=== PATIENT | male | born 1990 | race African-American/Black ===

== ENCOUNTER 2018-06-26 21:28 | Emergency (ER) | payer SELFPAY ==
[2018-06-27] MEDS ORDERED: MAG HYDROX/AL HYDROX/SIMETH SUSP 30 ML UDCUP PO ONE (00:42)
[2018-06-27] MEDS ORDERED: LIDOCAINE 2% VISCOUS SOLN 20 ML UDCUP PO ONE (00:42)
[2018-06-27] MEDS ORDERED: PANTOPRAZOLE SODIUM 40 MG VIAL IV ONE (00:42)
[2018-06-27] MEDS ORDERED: METOCLOPRAMIDE HCL ORAL SOLN 10 MG/10 ML UDCUP PO ONE (00:42)
[2018-06-27] MEDS ORDERED: NORMAL SALINE 1000 ML 1,000 ML IV ONE (00:42)
--- NOTE | 2018-06-27 00:43 | ER Document Report ---
ED General - General Chief Complaint: Abdominal Pain Stated Complaint: STOMACH PAIN Time Seen by Provider: 06/27/18 00:09 Notes: Patient is a 28-year-old male that presents to the emergency department for chief complaint of epigastric abdominal pain. Patient reports he has been having symptoms for about 2 weeks. He describes as a sharp pain, epigastric region, that seems to sometimes be better with food. He is been taking Pepto- Bismol with some relief, but the pain came back to be decided come to the emergency department. He has had off and on nausea and occasionally vomiting. He states his stools were darker when he was taking the Pepto-Bismol, but were normal today. He has been having harder stools. He denies noting any blood in the vomit or in the stools. No prior history of peptic ulcer disease. Denies noting any recent fevers, chills, night sweats, chest pain, shortness of breath , dysuria or hematuria. Past Medical History: Denies chronic medical conditions Past Surgical History: Denies surgical history Social History: Admits to smoking cigarettes, but denies alcohol or drug use. Family History: Reviewed and noncontributory for presenting illness Allergies: Reviewed, see documented allergy list. REVIEW OF SYSTEMS: Unless otherwise stated in this report the patient's positive and negative responses for review of systems for constitutional, eyes, ENT, cardiovascular, respiratory, gastrointestinal, neurological, genitourinary, musculoskeletal, and integumentary systems and related systems to the presenting problem are either as stated in the HPI or were not pertinent or were negative for the symptoms and/or complaints related to the presenting medical problem. PHYSICAL EXAMINATION: Vital signs reviewed, nursing noted reviewed. GENERAL: Well-appearing, well-nourished and in no acute distress. HEAD: Atraumatic, normocephalic. EYES: Eyes appear normal, extraocular movements intact, sclera anicteric, conjunctiva are normal. ENT: nares patent, oropharynx clear without exudates. Moist mucous membranes. NECK: Normal range of motion, supple without lymphadenopathy LUNGS: Breath sounds clear to auscultation bilaterally and equal. No wheezes rales or rhonchi. HEART: Regular rate and rhythm without murmurs ABDOMEN: Soft, mild epigastric abdominal pain with palpation, normoactive bowel sounds. No rebound, guarding, or rigidity. No masses appreciated. EXTREMITIES: Nontender, good range of motion, no pitting or edema. NEUROLOGICAL: No focal neurological deficits. Moves all extremities spontaneously Motor and sensory grossly intact on exam. PSYCH: Normal mood, normal affect. SKIN: Warm, Dry, normal turgor, no rashes or lesions noted on exposed skin TRAVEL OUTSIDE OF THE [place] IN LAST 30 DAYS: No Past Medical History - Social History Smoking Status: Current Every Day Smoker Family History: Reviewed & Not Pertinent Physical Exam - Vital signs Vitals: Temp Pulse Resp BP Pulse Ox 98.3 F 126 H 18 129/76 H 99 06/26/18 22:18 06/26/18 22:18 06/26/18 22:18 06/26/18 22:18 06/26/18 22:18 Course - Re-evaluation Re-evalutation: Patient seen and examined vital signs reviewed. Laboratory data and imaging were ordered as appropriate for the patient's presenting symptoms and complaint, with consideration of any critical or life threatening conditions that may be associated with their obtained history and exam as noted above. Patient was treated with IV fluids, GI cocktail, and IV Protonix Results were reviewed when available and demonstrated unremarkable blood work The patient was re-evaluated and was much improved, denied having any pain, and he was overall feeling much better Evaluation was most consistent with epigastric abdominal pain, possible gastritis versus peptic ulcer disease, will discharge the patient home on omeprazole 40 mg daily, and Carafate 3 times daily Results were discussed with the patient at this point, after careful consideration I feel that that patient can be discharged from the emergency department, the patient was educated treatments and reasons to return to the emergency department based on their presumed diagnosis as noted above, they were advised to followup with a primary care physician in 2-3 days. Patient was agreeable to plan of care. *Note is created using voice recognition software and may contain spelling, syntax or grammatical errors. - Vital Signs Vital signs: Temp Pulse Resp BP Pulse Ox 98.3 F 126 H 18 131/93 H 100 06/26/18 22:18 06/26/18 22:18 06/26/18 22:18 06/27/18 02:01 06/27/18 02:01 - Laboratory Result Diagrams: 06/27/18 00:35 06/27/18 00:35 Discharge - Discharge Clinical Impression: Epigastric pain Condition: Stable Disposition: HOME, SELF-CARE Instructions: Abdominal Pain ([facility]) Additional Instructions: Please take medications as prescribed, and follow-up with gastroenterology, if you have any further concerns, do not hesitate to return to the emergency department. Prescriptions: Omeprazole 40 mg PO DAILY #30 capsule. Sucralfate [Carafate 1 gm Tablet] 1 gm PO ACHS #120 tablet Referrals: KATIUSKA VILLAREAL MD [ACTIVE STAFF] - Follow up in 3-5 days (gastroenterology)
[2018-06-27 00:52] LABS: ABSOLUTE LYMPHOCYTES (AUTO) 2.3 10^3/uL (0.5-4.7); ABSOLUTE MONOCYTES (AUTO) 0.8 10^3/uL (0.1-1.4); ABSOLUTE NEUT (AUTO) 5.6 10^3/uL (1.7-8.2); BASOPHILS % (AUTO) 0.3 % (0-2); EOSINOPHILS % (AUTO) 0.4 % (0-6); HEMATOCRIT 45.2 % (37.9-51.0); HEMOGLOBIN 15.1 g/dL (13.5-17.0); MEAN CORPUSCULAR HEMOGLOBIN 28.8 pg (27.0-33.4); MEAN CORPUSCULAR HGB CONC 33.4 g/dL (32.0-36.0); MEAN CORPUSCULAR VOLUME 86 fl (80-97); MONOCYTES % (AUTO) 9.2 % (3-13); PLATELET COUNT 217 10^3/uL (150-450); RED BLOOD COUNT 5.23 10^6/uL (4.35-5.55); RED CELL DISTRIBUTION WIDTH 13.3 % (11.5-14.0); SEGMENTED NEUTROPHILS % (AUTO) 64.1 % (42-78); TOTAL CELLS COUNTED % (AUTO) 100 %; WHITE BLOOD COUNT 8.7 10^3/uL (4.0-10.5)
[2018-06-27 01:53] LABS: ALANINE AMINOTRANSFERASE 22 U/L (21-72); ALBUMIN 4.6 g/dL (3.5-5.0); ALKALINE PHOSPHATASE 56 U/L (38-126); ANION GAP 12 (5-19); ASPARTATE AMINO TRANSFERASE 17 U/L (17-59); BILIRUBIN,DIRECT 0.3 mg/dL (0.0-0.4); BILIRUBIN,TOTAL 0.7 mg/dL (0.2-1.3); BLOOD UREA NITROGEN 13 mg/dL (7-20); CALCIUM 10.1 mg/dL (8.4-10.2); CARBON DIOXIDE 25 mmol/L (22-30); CHLORIDE 103 mmol/L (98-107); GLUCOSE 97 mg/dL (75-110); LIPASE 79.3 U/L (23-300); POTASSIUM 3.8 mmol/L (3.6-5.0); SODIUM 139.6 mmol/L (137-145); TOTAL PROTEIN 7.6 g/dL (6.3-8.2)
[2018-06-27 02:37] VITALS: BP 131/93
== END 2018-06-27 02:46 | disposition home or self-care (01) ==
LOC: ER 21:28
DX: R10.13 Epigastric pain (principal); F17.210 Nicotine dependence, cigarettes, uncomplicated
CPT/HCPCS: 99284; 36415; 83690; 85025; 80053; J3490; S0164

== ENCOUNTER 2018-07-08 23:12 | Emergency (ER) | payer SELFPAY ==
--- NOTE | 2018-07-09 00:23 | RADIOLOGY REPORT (SQ) ---
CLINICAL DATA: 28-year-old male with lower central abdominal pain TECHNICAL DATA: Three x-ray images of the chest and abdomen were performed including a PA radiograph of the chest as well as supine and upright views of the abdomen. Comparison: None. FINDINGS: The lungs are well expanded. The cardiac silhouette is within normal limits. There is no focal consolidation, pleural effusion or pneumothorax. The costophrenic sulci are clear. The bowel gas pattern is nonspecific and nonobstructive. There is no evidence of free air or significant air-fluid levels. No pathologic abdominal calcifications are identified. No focal soft tissue abnormalities are seen. Several pelvic phleboliths are noted. There is minimal fecal residue scattered throughout the colon. IMPRESSION: 1. No evidence of acute intrathoracic disease.. 2. Nonspecific nonobstructive bowel gas pattern.
--- NOTE | 2018-07-09 00:45 | ER Document Report ---
ED GI/ - General Chief Complaint: Constipation Stated Complaint: CONSTIPATION Time Seen by Provider: 07/08/18 23:39 Mode of Arrival: Ambulatory Information source: Patient Notes: Patient is a 28-year-old male comes emergency room complaining of feeling like he is constipated. Patient states that he was seen here at the end of June diagnosed with esophagitis and is put on Carafate and he was put on omeprazole. States that last for 5 days she has felt really constipated unable to have a bowel movement but feels like he has to go. He has tried some kind of powder [id number] that was not MiraLAX but similar without any resolution and he also got some laxatives at [facility] and took them earlier tonight without any resolution as well. He is fixated on his constipation feeling. He denies any nausea vomiting. He has been having small bowel movements but not major once. He is concerned because he wants to go back to work and he feels like he can with his belly hurting. He also denies any fever. He has no specific area of tenderness is kind of like wavy when it attacks seem and then it goes away. TRAVEL OUTSIDE OF THE [place] IN LAST 30 DAYS: No - Related Data Allergies/Adverse Reactions: No Known Allergies Allergy (Verified 07/08/18 23:47) Past Medical History - General Information source: Patient - Social History Smoking Status: Never Smoker Chew tobacco use (# tins/day): No Frequency of alcohol use: Rare Drug Abuse: Marijuana Family History: Reviewed & Not Pertinent Patient has suicidal ideation: No Patient has homicidal ideation: No Renal/ Medical History: Denies: Hx Peritoneal Dialysis GI Medical History: Reports: Hx Gastroesophageal Reflux Disease Review of Systems - Review of Systems Constitutional: No symptoms reported EENT: No symptoms reported Cardiovascular: No symptoms reported Respiratory: No symptoms reported Gastrointestinal: Constipation Genitourinary: No symptoms reported Male Genitourinary: No symptoms reported Musculoskeletal: No symptoms reported Skin: No symptoms reported Hematologic/Lymphatic: No symptoms reported Neurological/Psychological: No symptoms reported -: Yes All other systems reviewed and negative Physical Exam - Vital signs Vitals: Temp Pulse Resp BP Pulse Ox 97.8 F 85 20 135/73 H 100 07/08/18 23:17 07/08/18 23:17 07/08/18 23:17 07/08/18 23:17 07/08/18 23:17 Interpretation: Hypertensive - Notes Notes: Well-developed well-nourished male no apparent distress. - General General appearance: Appears well - HEENT Head: Normocephalic, Atraumatic Eyes: Normal - Respiratory Respiratory status: No respiratory distress Chest status: Nontender Breath sounds: Normal. No: Rales, Rhonchi, Stridor, Wheezing Chest palpation: Normal - Cardiovascular Rhythm: Regular Heart sounds: Normal auscultation Murmur: No - Back Back: Normal, Nontender. No: Deformity/step-off, CVA tenderness, Vertebra tenderness, Scars, Scoliosis, Wounds - Neurological Neuro grossly intact: Yes Orientation: AAOx4 Shreya Coma Scale Eye Opening: Spontaneous Shreya Coma Scale Verbal: Oriented Shreya Coma Scale Motor: Obeys Commands Shreya Coma Scale Total: 15 Speech: Normal Course - Re-evaluation Re-evalutation: 07/09/18 00:43 I have the period of time where we can sit down talk to patient about his hydration and his eating habits as well as anxiety. I have also given him a recipe for a cocktail that will help him have a nice fluid bowel movement. Patient was seen here and worked up in June for gastritis kind of presentation so he is highly nervous type of individual. I try to explain to him the connection between anxiety and constipation as well. Also the fact that the more it will on a bigger the problem becomes. I have given you my recipe for milk of magnesia with water before bed. I explained to him it is a hyperosmolar causes order to be drawn into the intestine and therefore you have diarrhea in the morning. It is gentle and it works 99% of the time. - Vital Signs Vital signs: Temp Pulse Resp BP Pulse Ox 97.8 F 85 20 135/73 H 100 07/08/18 23:17 07/08/18 23:17 07/08/18 23:17 07/08/18 23:17 07/08/18 23:17 Discharge - Discharge Clinical Impression: Constipation Qualifiers: Constipation type: unspecified constipation type Qualified Code(s): K59.00 - Constipation, unspecified Condition: Stable Disposition: HOME, SELF-CARE Instructions: Constipation ([facility]) Additional Instructions: Go home tonight. Stop and get a fresh bottle of generic milk of magnesia. It comes with a measuring cup on top that looks like a shot glass. Taken drink 2 of those followed by 12 ounces of warm tap water. Go to bed. In the morning when you get up have a hot coffee or hot tea or hot chocolate and it was stimulated to have a nice fluid bowel movement. Try not to mix a whole lot of different laxatives and anticonstipation medications together because she will end up making herself worse. Also encouraged herself a lot of pain. Since you are having all the stomach problems I highly suggest you fine a primary care provider and get a referral to a GI doctor for a thorough checkup. If you have any concerns or problems return to ER for recheck. Forms: Elevated Blood Pressure, Return to School, Smoking Cessation Education
[2018-07-09 01:12] VITALS: BP 119/66
== END 2018-07-09 01:10 | disposition home or self-care (01) ==
LOC: ER 23:12
DX: K59.00 Constipation, unspecified (principal); Z79.899 Other long term (current) drug therapy
CPT/HCPCS: 74022; 99283